=== PATIENT | male | born 1970 | race African-American/Black ===

== ENCOUNTER 2019-12-25 15:20 | Inpatient (IN) | payer BC, OTHER ==
[~2019-12-25] VITALS: Ht 185.4 cm; Wt 103.1 kg
--- NOTE | ~2019-12-25 | HC ---
[facility] [place] [address] CONSULTATION Name: NADIR LOPEZ Room #: 464-[facility] IN M.R.#: [id number] Admission: 12/25/19 Attend Phys: Elina Soto Discharge: 12/28/19 Date of : 70 Report #: [id number] THIS REPORT FOR: cc: Jyoti Arias K. Steven DO Althoff, Jeffrey R. MD ~ CC: Elina Arias DATE OF SERVICE: 12/26/2019 WOUND CARE CONSULTATION HISTORY OF PRESENT ILLNESS: This is a 49-year-old male patient who was admitted to the hospital with uncontrolled diabetes as well as swelling and pain involving his left lateral foot. He has had increasing pain, swelling, numbness over the past several weeks, but has become more severe over the last 24-48 hours. He apparently has been seen by his primary care physician and received an antibiotic injection, was started on metformin. Things have not improved. He is admitted for further evaluation and treatment. The patient denies significant problems with ulcerations or wounds on his feet in the past. ALLERGIES: SULFA. PAST MEDICAL HISTORY: Positive for diabetes mellitus. SOCIAL HISTORY: Negative for alcohol or tobacco use. FAMILY HISTORY: Noncontributory. MEDICATIONS: Losartan, glyburide, Jardiance and Augmentin. REVIEW OF SYSTEMS: CONSTITUTIONAL: The patient denies fever, chills, or weight loss. NEUROLOGICAL: The patient denies focal weakness, but does have some numbness and tingling of his toes on both feet. ENT: The patient denies earache, nasal drainage, sore throat. CARDIOVASCULAR: The patient denies chest pain or palpitations or diaphoresis. PULMONARY: The patient denies cough or shortness of breath. GASTROINTESTINAL: The patient denies nausea, vomiting, diarrhea. ORTHOPEDIC: The patient does complain of pain involving the interdigital web space between the left fourth and fifth toes with some small amount of drainage present. Denies any open ulcerations. GENITOURINARY: The patient denies frequency or urgency of urination. Denies dysuria. Other systems in a 14-point review of systems are negative. [facility] [address] [place] [address] CONSULTATION Name: NADIR LOPEZ Room #: 464-[facility] IN M.R.#: [id number] Admission: 12/25/19 Attend Phys: Elina Soto Discharge: 12/28/19 Date of : 70 Report #: [id number] PHYSICAL EXAMINATION: VITAL SIGNS: Include temperature 98.0, pulse 84, respiratory rate 20, blood pressure 118/75. GENERAL: This is a well-developed, well-nourished male patient who appears to be in minimal distress. HEENT: Head normocephalic. Nose and throat clear. NECK: Supple. LUNGS: Clear. HEART: Regular rhythm. ABDOMEN: Soft. Bowel sounds are present. EXTREMITIES: Lower extremities demonstrate easily palpable distal pulses. There is some whitish drainage in the interdigital web space between the fourth and fifth toes of the left foot with a small area of tenderness and a little bit of darkening of the skin with no obvious defect in the skin and no fluctuance noted. NEUROLOGIC: The patient is alert and oriented and appropriate. He appears to have diminished light touch sensation. LABORATORY STUDIES: Include sodium 134, potassium 3.7, chloride 99, CO2 of 27, BUN 15, creatinine 1.0, glucose 289. Alkaline phosphatase 140, albumin 2.8. CLINICAL IMPRESSION: 1. Diabetic foot infection involving the left foot. 2. Possible small ulceration versus abscess of the left foot. 3. Type 2 diabetes mellitus with hyperglycemia. 4. Hypertension. RECOMMENDATIONS: At this point in time, we will recommend Aquacel Ag to the interdigital webspace, intravenous antibiotic pending C and S that I obtained at the bedside today. Aggressive nutritional support. X-rays showed no evidence of bony abnormality. We will see how he does with 24 hours of antibiotics. He may require MRI for further investigation. Recommend continuation of other medications. The patient is agreeable to current plan of care. I appreciate being asked to see him in consultation. By: [id number] Demond Nathan MD /nt
[2019-12-25 15:21] VITALS: BP 169/94
[2019-12-25 16:10] LABS: ABSOLUTE NEUTROPHILS 10.5 thou/uL (1.4-8.2); BASOPHILS 0.6 % (0.0-2.0); EOSINOPHILS 0.4 % (0.0-3.0); HEMOGLOBIN 14.4 gm/dL (14.0-18.0); LYMPHOCYTES 7.4 % (24.0-44.0); MCH 24.3 pg (26.0-34.0); MCHC 31.3 g/dL (28.0-37.0); MCV 77.6 fL (80.0-100.0); MONOCYTES 7.5 % (1.0-8.0); PLATELET COUNT 235 thou/uL (150-400); POLYS 84.1 % (36.0-66.0); RBC 5.92 mil/uL (4.50-6.00); RDW 14.7 % (10.5-14.5); WBC 12.4 thou/uL (4.0-11.0)
[2019-12-25 16:20] LABS: ANION GAP 8 mmol/L (7-16); BUN 15 mg/dL (7-18); CALCIUM 8.8 mg/dL (8.5-10.1); CHLORIDE 99 mmol/L (98-107); CO2 27 mmol/L (21-32); GLUCOSE 289 mg/dL (74-106); POTASSIUM 3.7 mmol/L (3.5-5.1); SODIUM 134 mmol/L (136-145)
[2019-12-25 16:27] LABS: ALBUMIN 2.8 g/dL (3.4-5.0); DIRECT BILIRUBIN < 0.1 mg/dL (<0.1-0.2); SGOT 8 U/L (15-37); SGPT 20 U/L (30-65); TOTAL BILIRUBIN 0.3 mg/dL (<0.1-1.0); TOTAL PROTEIN 6.4 g/dL (6.4-8.2)
[2019-12-25 18:26] LABS: CHOLESTEROL 162 mg/dL (<200); HDL CHOLESTEROL 54 mg/dL (>40); LDL CHOLESTEROL 86 mg/dL (<100); TRIGLYCERIDE 111 mg/dL (<150); VLDL 22 mg/dL (<40)
[2019-12-25 19:01] VITALS: BP 169/94
--- NOTE | 2019-12-25 19:18 | NUR ---
FIRST ATTEMPT TO CALL REPORT. NURSE UNAVAILABLE. WILL CALL BACK IN 5 MINUTES
[2019-12-25 19:36] VITALS: BP 148/92
[2019-12-25 19:55] VITALS: BP 126/71
--- NOTE | 2019-12-26 03:08 | NUR ---
PT ADMITTED TO THE UNIT AT ABOUT 1930 FROM THE ER.PT IS A/O X4.PT IS UP WITH WALKER ,PT ADMITTED WITH C/O PAIN ON LT FOOT AND DIAGNOSED WITH CELLULITIS.PAIN MGT WITH HYDROCODONE.PT IS ACCUCHECK ACHS WITH LOW DOSE SLIDING SCALE INSULIN.IV ACCESS ON THE RAC WITH NS AT 75CC/HR AND PT ALSO HAS ANTIBIOTICS.PT MOTHER SPENT NIGHT WITH PT.WILL CONTINUE TO MONITOR POC
[2019-12-26 06:12] LABS: GLYCOHEMOGLOBIN (HGB A1C) 12.3 % (4.8-5.6)
[2019-12-26 07:40] VITALS: BP 118/75
--- NOTE | 2019-12-26 08:57 | EKG ---
[facility] [place] [address] ELECTROCARDIOGRAM REPORT Name: NADIR LOPEZ Room #: 464- [facility] IN M.R.#: [id number] Admission: 12/25/19 Attend Phys: Elina Soto Discharge: Date of : 70 Report #: [id number] THIS REPORT FOR: cc: Jyoti Arias K. Steven DO Lundgren, Craig H. 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 : 1970 Requested By: Elina Soto Order Number: [id number] MD: Neftali Helton Measurements Intervals [place] Rate: 116 P: 44 [place]: 149 QRS: 27 QRSD: 100 T: -20 QT: 318 QTc: 442 Interpretive Statements Sinus tachycardia Borderline T abnormalities, inferior leads No previous ECG available for comparison Electronically Signed On 12-26-2019 8:56:49 [employer] by Neftali Helton [email or web address] <ELECTRONICALLY SIGNED> By: Neftali Helton MD, FACC 12/26/19 [id number] Neftali Helton MD, [facility] /EPI
[2019-12-26 15:20] VITALS: BP 127/78
--- NOTE | 2019-12-26 16:35 | NUR ---
PT ADMITTED RELATED TO DIABETIC FOOT ULCER, HYPERGLYCEMIA, AND CELLULITIS. CM REVIEWED CHART AND SPOKE WITH CARE TEAM. CM MET WITH PT AND AT FAMILY AT BEDSIDE THIS DAY. PT IS A&O X4. CM ROLE INTRODUCED. PT INDICATED HE LIVES IN A HOUSE WITH HIS MOTHER WITH NO STEPS TO ENTER AND 2 INSIDE. 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 PT INDICATED NO HH OR OP THERAPY. PT INDICATED HE THINKS HE'LL BE ALBE TO AFFORD ANY SCRIPTS UPON DC. PT IS AWARE THAT HE WILL NEED A GLUCOMETER AND TESTING SUPPLIES UPON DC. HE EXPRESSED SOME CONCERN ABOUT COST OF COPAYS FOR SCRIPTS. CM INDICATED THAT THINGS COULD BE PRICED OUT AT OP PHARM UPON DC AND PT COULD BE INFORMED OF COST. ANTICPATE POSSIBLE DC HOME TOMORROW. CM TO FOLLOW INDICATED WITH DC PLANNING.
--- NOTE | 2019-12-26 21:39 | NUR ---
PATIENT ALERT AND ORIENTED WITH MOTHER AT BEDSIDE AND SPENDS NIGHT IN COT IN ROOM. SEEN BY WOUND CARE TODAY AND ON IV ANTIBIOTICS. HAS PAIN WITH AMBULATES, OTHERWISE PATIENT DOES NOT REQUEST PAIN MEDICATION.
[2019-12-27 07:30] VITALS: BP 125/78
[2019-12-27 15:30] VITALS: BP 119/73
[2019-12-27 19:37] VITALS: BP 133/80
--- NOTE | 2019-12-27 20:12 | NUR ---
Assumed patient care at 0715. Vital signs stable, he denies pain. Patient on IV Antibiotics without adverse reactions. Dressing to toes clean, dry and intact. Patient is up ad jenelle with a steady gait. He is on accuchecks AC and HS. Both breakfast and lunch blood sugars required [place] Sliding Scale coverage. Dinner blood sugar did not require coverage. Patient noted to be using a urinal as opposed to getting out of bed and using the restroom. Mother is at bedside, to stay all night with son. Mother noted to answer questions and ask several. Patient has a flat affect. Interactions with this patient have been initiated by MARKETING COMMUNICATIONS SPECIALIST and nurse. Report given to on-coming nurse.
--- NOTE | 2019-12-28 03:53 | NUR ---
Assessments completed. pt a&ox4. adlib in the room. will call for assisntance as needed. pt took a shower last night at change of shift. pain relieved with narco. iv dressing changed. mom at bedside. v/s stable. no s/s of distress. will cont to monitor
[2019-12-28 08:20] VITALS: BP 123/69
[2019-12-28] MEDS ORDERED: COZAAR 25 MG TA25 M1 PO (09:34)
[2019-12-28] MEDS ORDERED: JARDIANCE10 MG PO (09:34)
[2019-12-28] MEDS ORDERED: AUGMENTIN 875-1 EACH PO (09:34)
[2019-12-28] MEDS ORDERED: GLYBURIDE 5 MG T5 M1 PO (09:35)
[2019-12-28 14:33] VITALS: BP 123/69
--- NOTE | 2019-12-28 16:52 | NUR ---
CARE TEAM INDICATED THAT PT IS MEDICALLY STABLE TO DC HOME THIS DAY. CM TOOK PT'S SCRIPTS DOWN TO OP PHARMACY COST IS $51.94 CM NOTIFIED PT AND HE INDICATED THEY CAN'T AFFORD THEM. CM REQUESTED PERMISSION TO VOUCHER MEDS. NO OTHER CM INTERVENTION INDICATED. CASE CLOSED.
--- NOTE | 2019-12-28 17:41 | NUR ---
Assumed patient care at 0715. Vital signs have been stable. Blood sugars have required 3 units of sliding scale coverage except for Dinner reading which was 213. Patient had recieved his Discharge Paperwork and was not wanting to leave. He and his Mother both became very rude and defensive at this time. Patient has been educated by this nurse about his Diabetes and medications/disease process. Patient did not seem intersted at all, did not ask any questions. Mother stated several times "I hope I can do all of this." This nurse replied "he needs to learn how to do these things himself." Patient and mother tried to prolong and/or avoid the Discharge process (both of them threw a fit over the "Return to Work" Prescription; mother stated "he cant go back to work!", and, "he cant even walk!" This nurse brought Charge Nurse, Christine Jim into room to finalize all paperwork as both patient and mother were extremely difficult. Patient left with Discharge Paperwork, Prescriptions, clothing, wound care supplies, cell phone , laundry aid, ball cap, shoes and food that they had brought from outside. They were escorted to the Pharmacy where they received free medications and to Medical Records for a copy of his MRI.
== END 2019-12-28 17:35 | disposition home or self-care (01) | DRG 638 ==
LOC: ER 15:20 → 4W 18:11 → EROBS 18:11 → 4W 19:37 → ENTRNSPT 12-28 17:17 → 4W 12-28 17:35
PROVIDERS: Emergency Medicine; ADMIT Hospitalist
DX: E11.621 Type 2 diabetes mellitus with foot ulcer (principal); L03.116 Cellulitis of left lower limb; E11.65 Type 2 diabetes mellitus with hyperglycemia; E11.40 Type 2 diabetes mellitus with diabetic neuropathy, unspecified; I10 Essential (primary) hypertension; Z79.899 Other long term (current) drug therapy; Z88.2 Allergy status to sulfonamides
CPT/HCPCS: 10040

== ENCOUNTER → 2020-01-19 | Outpatient (CLI) | payer BC ==
[~2020-01-19] MED LIST: AUGMENTIN 875-1 EACH PO; COZAAR 25 MG TA25 M1 PO; GLYBURIDE 5 MG T5 M1 PO; JARDIANCE10 MG PO
== END ==
LOC: HYPER 08:32
DX: E11.621 Type 2 diabetes mellitus with foot ulcer (principal); L97.521 Non-pressure chronic ulcer of other part of left foot limited to breakdown of skin; L03.116 Cellulitis of left lower limb; E11.65 Type 2 diabetes mellitus with hyperglycemia; E66.01 Morbid (severe) obesity due to excess calories; Z91.19 Patient's noncompliance with other medical treatment and regimen; Z68.34 Body mass index [BMI] 34.0-34.9, adult

== ENCOUNTER → 2020-01-26 | Outpatient (CLI) | payer BC | LOC: SJCVCIMAG 11:06 | DX: I73.9 Peripheral vascular disease, unspecified (principal); L97.509 Non-pressure chronic ulcer of other part of unspecified foot with unspecified severity ==

== ENCOUNTER → 2020-02-02 | Outpatient (CLI) | payer BC | LOC: HYPER 09:03 | DX: E11.621 Type 2 diabetes mellitus with foot ulcer (principal); L97.521 Non-pressure chronic ulcer of other part of left foot limited to breakdown of skin; L03.116 Cellulitis of left lower limb; E11.65 Type 2 diabetes mellitus with hyperglycemia; E66.01 Morbid (severe) obesity due to excess calories; Z91.19 Patient's noncompliance with other medical treatment and regimen; Z79.84 Long term (current) use of oral hypoglycemic drugs; Z68.34 Body mass index [BMI] 34.0-34.9, adult ==

== ENCOUNTER → 2020-03-01 | Outpatient (CLI) | payer BC | LOC: HYPER 08:51 | DX: E11.621 Type 2 diabetes mellitus with foot ulcer (principal); L97.521 Non-pressure chronic ulcer of other part of left foot limited to breakdown of skin; L03.116 Cellulitis of left lower limb; E11.65 Type 2 diabetes mellitus with hyperglycemia; Z91.19 Patient's noncompliance with other medical treatment and regimen; Z79.84 Long term (current) use of oral hypoglycemic drugs ==